=== PATIENT | female | born 1985 | race Hispanic/Latino ===

== ENCOUNTER 2018-04-23 08:03 | Inpatient (IN) | payer OTHER ==
[2018-04-23] MEDS ORDERED: Oxytocin 30 units/LR 500ML 30 UNITS/500 ML BAG IV ONE (10:39)
[2018-04-23] MEDS ORDERED: OXYTOCIN/0.9 % NS 20 UNIT/1,000 ML BAG IV SCH (10:45)
[2018-04-23 11:03] LABS: BASO # 0.1 K/uL (0.0-0.2); BASO % 0.5 % (0.0-2.0); EOS # 0.1 K/uL (0.0-0.7); EOS % 1.1 % (0.0-4.0); HEMOGLOBIN 11.8 g/dL (12.0-16.0); LYMPH # 3.2 K/uL (1.0-4.3); LYMPH % 24.5 % (20.0-40.0); MEAN CELL VOLUME 91.1 fl (81.0-99.0); MEAN CORPUSCULAR HEMOGLOBIN 29.9 pg (27.0-31.0); MEAN CORPUSCULAR HGB CONC 32.8 g/dL (33.0-37.0); MEAN PLATELET VOLUME 11.3 fl (7.2-11.7); MONO # 0.9 K/uL (0.0-0.8); MONO % 6.7 % (0.0-10.0); NEUT # 8.6 K/uL (1.8-7.0); NEUT % 67.2 % (50.0-75.0); NRBC % 0.1 % (0.0-0.0); RBC 3.96 Mil/uL (3.80-5.20); RED CELL DISTRIBUTION WIDTH 13.6 % (11.5-14.5); WHITE BLOOD COUNT 12.9 K/uL (4.8-10.8)
[2018-04-23] MEDS ORDERED: Oxytocin 30 UNIT 30 UNITS/500 ML BAG IV ONE (11:08)
[2018-04-23] MEDS: Lactated Ringer's 1,000 ML IV SCH ×3 (11:45→20:05)
[2018-04-23] MEDS ORDERED: Lactated Ringer's 1,000 ML IV SCH (12:00)
--- NOTE | 2018-04-23 14:47 | OBHP ---
Datetime: 04/23/2018 08:40 IP Adm Impression: Term, intrauterine ; No Active Labor; Intact Membranes IP Adm Impression Other: Latent phase of labor IP Admit Plan: Admit to unit; Initiate labor protocol Admit Comment, IP Provider: 33yo IUp at 39w had SORM and CTX this morning. No VB. +FM PNC: Dr Vivar CP Chart rev'd POBGYNH: G1; Hx LEEP x 2 PmH: denies PSH: LEEP NKA PSoH: Denies smoking ETOH drugs A: IUP At 39w Latent phase of labor PLAN: Admit to L_D IV access; labs Observe labor progress labor, augmentatoin, pain managment, delivery and discussed. Pelvic Type - PN: Adequate Extremities - PN: Normal Abdomen - PN: Normal Back - PN: Normal Breast - PN: Not Done (Annotations: Data stored by CPN on behalf of user) Lungs - PN: Normal Heart - PN: Normal Thyroid - PN: Normal Neurologic - PN: Normal HEENT - PN: Normal General - PN: Normal Presentation-Admit: Vertex FHR - Baseline A Provider: 120 Membranes, Provider: Ruptured Contraction Comments Provider: occ Pool Provider: Positive IP Hx Assessment: The History has been Reviewed and is Current EGA AdmitDate IP: 39.6 IP Chief Complaint: Uterine contractions; Suspected ruptured membranes NICHD Variability Prov Fetus A: Moderate 6-25bpm NICHD Accel Fetus A IP Provider: [id number] FHR Category Provider Fetus A: Category I NICHD Decel Fetus A IP Provider: None Dilatation, Provider: 3 Effacement, Provider: 50 Station, Provider: -1 Genitourinary Exam: Normal DTRs - PN: Normal
[2018-04-23] MEDS ORDERED: Fentanyl/Bupivacaine HCl 250 ML EPI ONE (14:58)
[2018-04-23] MEDS ORDERED: Lidocaine 1% Inj (20ml) ONE (17:36)
--- NOTE | 2018-04-23 19:59 | OBPN ---
Datetime: 04/23/2018 19:50 IP Progress Impression: Reassuring heart rate IP Procedures: Artificial ROM IP Progress Plan: Continue present management; Anticipate Vaginal Delivery Pool Provider: Positive Membranes, Provider: Ruptured Contraction Comments Provider: 1-3m FHR - Baseline A Provider: 110 Presentation-Admit: Vertex IP Progress Note Comment: Notified that she was fully dilate bulging membranes noted. Pitocin at 4m iu/h (just decreased). SVE 10cm (second stage) Pitocin off/O2 left lateral...will observe labor progress NICHD Accel Fetus A IP Provider: 15X15 FHR Category Provider Fetus A: Category I NICHD Variability Prov Fetus A: Moderate 6-25bpm Dilatation, Provider: 10 Effacement, Provider: 100 Station, Provider: 0 NICHD Decel Fetus A IP Provider: None
[2018-04-24] MEDS ORDERED: Oxycodone/Acetaminophen 5/325 mg Tab PO PRN ×4 (00:22→02:36)
[2018-04-24] MEDS ORDERED: Benzocaine/Menthol SPRAY TOP PRN ×2 (00:22→02:36)
[2018-04-24] MEDS ORDERED: OXYTOCIN/0.9 % NS 20 UNIT/1,000 ML BAG IV SCH (02:36)
--- NOTE | 2018-04-24 09:12 | OBPPN ---
Datetime: 04/24/2018 09:10 PP Pain Prov: Within normal limits PP Nausea Prov: Denies PP Flatus Prov: Yes PP Breasts Prov: Not Done PP Heart Prov: Normal PP Lungs Prov: Normal PP Abdomen/Uterus Prov: Normal PP Lochia Prov: Not Done PP Vulva/Perineum Prov: Not Done PP CVA Tenderness Prov: Normal PP Extremities Prov: Normal PP Progress Prov: Normal PP Impression Prov: Normal progression PP Plan Prov: Continue present management PP Progress Note Prov: A should doing well ambulating tolerating diet pain well-controlled Vital signs stable afebrile Uterus firm below the umbilicus Extremities no Homans day 1 Regular diet, analgesia, anticipate discharge in a.m. Vital Signs Provider PP: Reviewed
[2018-04-24 11:41] LABS: BASO % 0.2 % (0.0-2.0); EOS # 0.1 K/uL (0.0-0.7); EOS % 0.5 % (0.0-4.0); HEMOGLOBIN 10.2 g/dL (12.0-16.0); LYMPH # 2.5 K/uL (1.0-4.3); LYMPH % 13.4 % (20.0-40.0); MEAN CELL VOLUME 90.5 fl (81.0-99.0); MEAN CORPUSCULAR HEMOGLOBIN 29.5 pg (27.0-31.0); MEAN CORPUSCULAR HGB CONC 32.6 g/dL (33.0-37.0); MEAN PLATELET VOLUME 10.6 fl (7.2-11.7); MONO # 0.9 K/uL (0.0-0.8); NEUT # 15.2 K/uL (1.8-7.0); NEUT % 80.9 % (50.0-75.0); RBC 3.47 Mil/uL (3.80-5.20); RED CELL DISTRIBUTION WIDTH 13.7 % (11.5-14.5); WHITE BLOOD COUNT 18.8 K/uL (4.8-10.8)
--- NOTE | 2018-04-25 11:40 | OBPPN ---
Datetime: 04/25/2018 11:39 PP Pain Prov: Within normal limits PP Nausea Prov: Denies PP Flatus Prov: Yes PP BM Prov: Yes PP Breasts Prov: Normal PP Heart Prov: Normal PP Lungs Prov: Normal PP Abdomen/Uterus Prov: Normal PP Lochia Prov: Normal PP Vulva/Perineum Prov: Normal PP CVA Tenderness Prov: Normal PP Extremities Prov: Normal PP C/S Incision Prov: Not Applicable PP Progress Prov: Normal PP Comments Phys Exam Prov: Abdomen soft, nontender, nondistended Uterus firm, below umbilicus No deep calf tenderness bilaterally PP Impression Prov: Normal progression PP Plan Prov: Discharge PP Progress Note Prov: day #2 status post , patient recovering well Patient discharged home with instructions Patient will follow up in office in 6 weeks for visit Discussed plan with patient all patient questions answered. IP PP Procedures: None Vital Signs Provider PP: Reviewed; Within Normal Limits
--- NOTE | 2018-04-25 11:42 | OBDCSUM ---
Datetime: 04/25/2018 11:40 Discharged to, Provider: Home Follow up at, Provider: [facility] Disch Instr Activity: Normal activity Disch Instr Diet: Regular Discharge Instructions, Provider: Routine instructions given Discharge Diagnosis, Provider: Term Delivered Discharge Time: 04/25/2018 11:40 Follow up in weeks, Provider: 6 weeks Disch Referrals: None Contraception discussed, Prov: Yes Contraception after Delivery: Undecided Datetime: 04/25/2018 11:24 Discharged to, Provider: Home Follow up at, Provider: Camila Disch Instr Activity: Normal activity Disch Instr Diet: Regular Follow up in weeks, Provider: in 4-6 weeks
[2018-04-25 19:17] VITALS: BP 131/80; PULSE 78; RESP 20; TEMP 98.3; O2SAT 100
== END 2018-04-25 14:45 | disposition home or self-care (01) | DRG 807 ==
LOC: H.EROB2 08:03 → H.L&D 08:48 → H.OB/GYN 04-24 01:45
PROVIDERS: ADMIT Obstetrics & Gynecology; ATTEND Obstetrics & Gynecology
PROC: 10E0XZZ Delivery of Products of Conception, External Approach (ICD-10-PCS; principal; 2018-04-23)
PROC: 0KQM0ZZ Repair Perineum Muscle, Open Approach (ICD-10-PCS; 2018-04-23)
PROC: 4A1HXCZ Monitoring of Products of Conception, Cardiac Rate, External Approach (ICD-10-PCS; 2018-04-23)
DX: O70.1 Second degree perineal laceration during delivery (principal); Z37.0 Single live birth; Z3A.39 39 weeks gestation of pregnancy